=== PATIENT | male | born 1960 | race Two or more races ===

== ENCOUNTER 2024-11-25 04:08 | Emergency (ER) | payer OTHER ==
[~2024-11-25] VITALS: Ht 172.7 cm; Wt 74.8 kg
[2024-11-25 06:37] LABS: URINE APPEARANCE Clear; URINE BILIRRUBIN Negative (NEGATIVE); URINE BLOOD Moderate; URINE COLOR Yellow; URINE GLUCOSE Negative (NEGATIVE); URINE KETONE 15 (NEGATIVE); URINE LEUKOCYTE Negative; URINE NITRATE Negative; URINE PROTEIN Negative (NEGATIVE); URINE UROBILINOGEN 0.2 E.U./dl
[2024-11-25 06:39] LABS: URINE BACTERIA 4.8 uL (0.0-1933); URINE RBC 186.1 uL (0.0-20.8)
[2024-11-25 07:02] LABS: URINE CAST 0.29 uL (0.0-1.40); URINE EPITHELIAL CELLS 0.9 uL (0.0-38.8)
== END 2024-11-25 07:49 ==
LOC: ER 04:10
PROVIDERS: General Practice
DX: N40.1 Benign prostatic hyperplasia with lower urinary tract symptoms (principal); R33.8 Other retention of urine